=== PATIENT | female | born 1990 | race Two or more races ===

== ENCOUNTER 2021-01-24 14:19 | Emergency (ER) | payer BC ==
[2021-01-24 14:55] VITALS: BP 100/62; PULSE 73; TEMP 98.1; BMI 25.4
[2021-01-24 15:03] LABS: BASO % 0.6 % (0-2.0); EOS % 4.6 % (0-4.5); HEMATOCRIT 39.7 % (32.4-45.2); HEMOGLOBIN 13.5 GM/dL (10.7-15.3); MCH 29.3 pg (25.7-33.7); MEAN CELL VOLUME 86.2 fl (80-96); MEAN PLT VOLUME 7.3 fl (7.5-11.1); MONO % 10.5 % (3.8-10.2); NEUT % 44.3 % (42.8-82.8); PLATELET COUNT 277 10^3/uL (134-434); RDW 13.1 % (11.6-15.6); WHITE BLOOD COUNT 5.6 K/mm3 (4.0-10.0)
[2021-01-24 15:21] LABS: ALBUMIN 3.8 g/dl (3.4-5.0); BLOOD UREA NITROGEN 18.4 mg/dL (7-18); CALCIUM 8.6 mg/dL (8.5-10.1)
[2021-01-24 15:24] LABS: CREATININE 0.8 mg/dL (0.55-1.3)
[2021-01-24 15:27] LABS: BILIRUBIN,TOTAL 0.2 mg/dL (0.2-1)
== END 2021-01-24 17:03 | disposition home or self-care (01) ==
LOC: JERFT 14:19
DX: R53.83 Other fatigue (principal)
CPT/HCPCS: 36415; 80053; 82728; 83540; 83550; 84443; 85025; 99283-25